=== PATIENT | male | born 1990 | race African-American/Black ===

== ENCOUNTER 2017-02-15 00:16 | Emergency (ER) | payer SELFPAY ==
[~2017-02-15] VITALS: Ht 180.3 cm; Wt 5.0 kg
[2017-02-15 00:51] LABS: BLOOD UREA NITROGEN 31 mg/dL (7-18)
[2017-02-15] MEDS ORDERED: LORazepam 1MG TABLET PO ONE (01:00)
[2017-02-15] MEDS ORDERED: LORazepam 1MG TABLET ONE (01:18)
[2017-02-15 01:26] VITALS: BP 122/54
== END 2017-02-15 01:53 | disposition home or self-care (01) ==
LOC: ED 01:03
DX: F15.10 Other stimulant abuse, uncomplicated (principal); Z91.19 Patient's noncompliance with other medical treatment and regimen
CPT/HCPCS: 36415; 80048; 85025; 93005

== ENCOUNTER 2017-06-18 14:58 | Observation (INO) | payer OTHER ==
[~2017-06-18] VITALS: Ht 180.3 cm; Wt 74.1 kg
[2017-06-18 15:45] LABS: HEMATOCRIT 42.8 % (39.2-51.8); HEMOGLOBIN 14.4 g/dL (13.7-18.0); WHITE BLOOD COUNT 7.9 x10^3/uL (3.4-10)
[2017-06-18 15:56] LABS: BLOOD UREA NITROGEN 23 mg/dL (7-18)
[2017-06-18 15:58] LABS: ACETAMINOPHEN < 2 mcg/mL (10-30)
[2017-06-18 16:55] LABS: DAU SCREEN DISCLAIMER
[2017-06-18] MEDS ORDERED: ZOLPIDEM 5MG TABLET PO PRN (19:00)
[2017-06-18] MEDS ORDERED: ACETAMINOPHEN 325 MG TABLET PO PRN (19:00)
[2017-06-18 19:44] VITALS: BP 101/63
[2017-06-19 07:43] VITALS: BP 148/70
[2017-06-19 19:31] VITALS: BP 115/63
[2017-06-20 08:21] VITALS: BP 107/66
[2017-06-20 19:30] VITALS: BP 119/74
[2017-06-20] MEDS: ZOLPIDEM 5MG TABLET PO PRN (20:21)
[2017-06-21 07:44] VITALS: BP 110/69
[2017-06-21] MEDS: ACETAMINOPHEN 325 MG TABLET PO PRN (18:25)
[2017-06-21] MEDS: ZOLPIDEM 5MG TABLET PO PRN (22:11)
[2017-06-22 08:00] VITALS: BP 105/72
[2017-06-22] MEDS: ACETAMINOPHEN 325 MG TABLET PO PRN (17:13)
[2017-06-22 19:44] VITALS: BP 115/64
[2017-06-22] MEDS: ZOLPIDEM 5MG TABLET PO PRN (21:58)
[2017-06-23 08:00] VITALS: BP 122/88
[2017-06-23] MEDS: ACETAMINOPHEN 325 MG TABLET PO PRN (16:33)
[2017-06-23 19:30] VITALS: BP 121/83
[2017-06-23] MEDS: ZOLPIDEM 5MG TABLET PO PRN (19:50)
[2017-06-24] MEDS: ZOLPIDEM 5MG TABLET PO PRN
[2017-06-24 08:00] VITALS: BP 119/75
[2017-06-24] MEDS: ACETAMINOPHEN 325 MG TABLET PO PRN (09:50)
== END 2017-06-24 12:50 | disposition home or self-care (01) ==
LOC: ED 18:17 → EDIP 18:18 → ED 18:37 → 3E 19:20
PROVIDERS: ADMIT Internal Medicine; ATTEND Internal Medicine
DX: R45.851 Suicidal ideations (principal); F32.9 Major depressive disorder, single episode, unspecified; F22 Delusional disorders; F17.210 Nicotine dependence, cigarettes, uncomplicated; F41.9 Anxiety disorder, unspecified
CPT/HCPCS: 36415; 80048; 80307; 80329; 82040; 85025; 99285; G0378; G0479; G0480

== ENCOUNTER 2021-03-06 21:37 | Emergency (ER) | payer MEDICAID ==
[~2021-03-06] VITALS: Ht 182.9 cm; Wt 80.2 kg
[2021-03-06 21:38] VITALS: BP 127/83
--- NOTE | 2021-03-07 00:51 | NUR ---
[id number]
--- NOTE | 2021-03-07 00:53 | NUR ---
[id number]
== END 2021-03-07 00:55 ==
LOC: ED 22:00
DX: R68.89 Other general symptoms and signs (principal); Z53.21 Procedure and treatment not carried out due to patient leaving prior to being seen by health care provider